=== PATIENT | female | born 1995 | race Caucasian/White ===

== ENCOUNTER 2017-03-31 02:09 | Emergency (ER) | payer MEDICAID, OTHER ==
[2017-03-31] MEDS ORDERED: Ketorolac 60 MG/2 ML SDV IM ONE (02:32)
[2017-03-31] MEDS ORDERED: Acetaminophen 500 MG Tab PO ONE (03:42)
--- NOTE | 2017-03-31 03:47 | EDM.PDOC ---
ED HPI GENERAL MEDICAL PROBLEM - General Chief Complaint: Chest Pain Stated Complaint: CHEST PAIN Time Seen by Provider: 03/31/17 03:15 Source of Information: Reports: Patient History Limitations: Reports: No Limitations - History of Present Illness INITIAL COMMENTS - FREE TEXT/NARRATIVE: 21 yo female presents with chest pain for at least a month, worse tonight. Has not been seen in the clinic for this. Denies injury to area. Pain worse with pressing on chest. 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 - Related Data Allergies Allergy/AdvReac Type Severity Reaction Status Date / Time No Known Allergies Allergy Verified 11/16/14 18:35 Home Meds: Home Meds Naproxen Sodium [Naproxen Sodium Ds] 550 mg PO TID PRN #20 tablet 03/31/17 [Rx] Past Medical History - Past Health History Medical/Surgical History: Denies Medical/Surgical History - Past Surgical History HEENT Surgical History: Reports: Tonsillectomy Social & Family History - Family History Family Medical History: Noncontributory - Tobacco Use Smoking Status *Q: Current Every Day Smoker Years of Tobacco use: 2 Packs/Tins Daily: 0.5 Second Hand Smoke Exposure: No - Caffeine Use Caffeine Use: Reports: Soda - Alcohol Use Days Per Week of Alcohol Use: 0 - Recreational Drug Use Recreational Drug Use: No ED ROS GENERAL - Review of Systems Review Of Systems: See Below Constitutional: Reports: No Symptoms HEENT: Reports: No Symptoms Respiratory: Reports: No Symptoms Cardiovascular: Reports: Chest Pain (sternal) GI/Abdominal: Reports: No Symptoms : Reports: No Symptoms Musculoskeletal: Reports: Other (sternal pain) Skin: Reports: No Symptoms Neurological: Reports: No Symptoms ED EXAM, GENERAL - Physical Exam Exam: See Below Exam Limited By: No Limitations General Appearance: Alert, WD/WN, No Apparent Distress Eye Exam: Bilateral Eye: Normal Inspection Ears: Normal External Exam, Normal Canal, Hearing Grossly Normal Ear Exam: Bilateral Ear: Auricle Normal, Canal Normal Nose: Normal Inspection, Normal Mucosa, No Blood Throat/Mouth: Normal Inspection, Normal Lips, Normal Oropharynx, Normal Voice, No Airway Compromise Head: Atraumatic, Normocephalic Neck: Normal Inspection, Supple Respiratory/Chest: No Respiratory Distress, Lungs Clear, Normal Breath Sounds, No Accessory Muscle Use Cardiovascular: Regular Rate, Rhythm, No Edema GI/Abdominal: Normal Bowel Sounds, Soft, Non-Tender, No Distention Back Exam: Normal Inspection Extremities: Normal Inspection, Normal Range of Motion, Non-Tender, No Pedal Edema Neurological: Alert, Oriented, CN II-XII Intact, Normal Cognition Psychiatric: Normal Affect, Normal Mood Skin Exam: Warm, Dry, Intact, Normal Color, No Rash Lymphatic: No Adenopathy Course - Vital Signs Text/Narrative:: Only partial relief with Toradol 60 mg IM Last Recorded V/S: Last Vital Signs Temp 36.9 C 03/31/17 02:10 Pulse 63 03/31/17 02:10 Resp 18 03/31/17 02:10 BP 132/72 03/31/17 02:10 Pulse Ox 100 03/31/17 02:10 - Orders/Labs/Meds Orders: Active Orders 24 hr Category Date Time Status Acetaminophen [Tylenol Extra Strength] Med 03/31/17 03:42 Once 1,000 mg PO ONETIME ONE Medication Orders Acetaminophen (Tylenol Extra Strength) 1,000 mg PO ONETIME ONE Stop: 03/31/17 03:43 Meds: Medications Generic Name Dose Route Start Last Admin Trade Name Freq PRN Reason Stop Dose Admin Acetaminophen 1,000 mg 03/31/17 03:42 Tylenol Extra Strength PO 03/31/17 03:43 ONETIME ONE Discontinued Medications Generic Name Dose Route Start Last Admin Trade Name Freq PRN Reason Stop Dose Admin Ketorolac Tromethamine 60 mg 03/31/17 02:32 03/31/17 02:39 Toradol IM 03/31/17 02:33 60 mg ONETIME ONE Administration Departure - Departure Time of Disposition: 03:50 Disposition: Home, Self-Care 01 Condition: Good Clinical Impression: Costochondritis Prescriptions: Naproxen Sodium [Naproxen Sodium Ds] 550 mg PO TID PRN #20 tablet PRN Reason: Pain Referrals: Manfred Lim MD [Primary Care Provider] - Forms: ED Department Discharge Additional Instructions: Take Naproxen as directed for pain relief. May add acetaminophen 1000 mg every 6 hrs if additional pain relief is needed. F/U with Dr. Lim for recheck. 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 - My Orders Last 24 Hours: My Active Orders 03/31/17 03:42 Acetaminophen [Tylenol Extra Strength] 1,000 mg PO ONETIME ONE - Assessment/Plan Last 24 Hours: My Active Orders 03/31/17 03:42 Acetaminophen [Tylenol Extra Strength] 1,000 mg PO ONETIME ONE
[2017-03-31 04:01] VITALS: BP 108/60
== END 2017-03-31 03:55 | disposition home or self-care (01) ==
LOC: FB.ED 02:09
DX: M94.0 Chondrocostal junction syndrome [Tietze] (principal); F17.210 Nicotine dependence, cigarettes, uncomplicated; Z98.890 Other specified postprocedural states
CPT/HCPCS: 96372; 99284; A9270; J1885

== ENCOUNTER 2017-11-29 20:51 | Emergency (ER) | payer OTHER ==
[2017-11-29] MEDS ORDERED: Bupivacaine 0.5% 50 ML MDV INFILT ONE (20:52)
--- NOTE | 2017-11-29 21:03 | EDM.PDOC ---
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 She denies loss of function of her right wrist and hand, there was mild bleed of the wound initially. No other acute medical issues. Pt denied . BP 125/56 pulse 97 RR 20 Pulse ox 99% on RA Temp 36.6 Onset Date: 11/29/17 Onset Time: 20:00 Duration: Minutes:, Constant Location: Reports: Upper Extremity, Right Quality: Reports: Ache, Burning, Dull Severity: Mild Improves with: Reports: Rest Worsens with: Reports: Movement Context: Reports: Trauma (cut right wrist by accident with a knife while cutting belts at work) Associated Symptoms: Reports: No Other Symptoms Right Arm Pain Score (Numeric/FACES): 3 - Related Data Allergies Allergy/AdvReac Type Severity Reaction Status Date / Time No Known Allergies Allergy Verified 11/29/17 21:14 Home Meds: Home Meds Cephalexin [Keflex] 500 mg PO Q6H #40 cap 11/29/17 [Rx] Past Medical History - Past Health History Medical/Surgical History: Denies Medical/Surgical History - Past Surgical History HEENT Surgical History: Reports: Tonsillectomy Social & Family History - Family History Family Medical History: Noncontributory - Tobacco Use Smoking Status *Q: Current Every Day Smoker Years of Tobacco use: 2 Packs/Tins Daily: 0.5 Second Hand Smoke Exposure: No - Caffeine Use Caffeine Use: Reports: Soda - Alcohol Use Days Per Week of Alcohol Use: 0 - Recreational Drug Use Recreational Drug Use: No Review of Systems - Review of Systems Review Of Systems: See Below Constitutional: Reports: No Symptoms Eyes: Reports: No Symptoms Ears: Reports: No Symptoms Nose: Reports: No Symptoms Mouth/Throat: Reports: No Symptoms Respiratory: Reports: No Symptoms Cardiovascular: Reports: No Symptoms GI/Abdominal: Reports: No Symptoms Genitourinary: Reports: No Symptoms Musculoskeletal: Reports: No Symptoms Skin: Reports: Wound (right wrist) Neurological: Reports: No Symptoms Psychiatric: Reports: No Symptoms ED EXAM, GENERAL - Physical Exam Exam: See Below Exam Limited By: No Limitations General Appearance: Alert, WD/WN, Mild Distress Eye Exam: Bilateral Eye: Normal Inspection Ears: Normal External Exam Ear Exam: Bilateral Ear: Auricle Normal Nose: Normal Inspection, Normal Mucosa Throat/Mouth: Normal Inspection, Normal Lips, Normal Teeth, Normal Gums, Normal Oropharynx, Normal Voice, No Airway Compromise Head: Atraumatic, Normocephalic Neck: Normal Inspection, Supple, Non-Tender, Full Range of Motion Respiratory/Chest: No Respiratory Distress, Lungs Clear, Normal Breath Sounds, No Accessory Muscle Use, Chest Non-Tender Cardiovascular: Normal Peripheral Pulses, Regular Rate, Rhythm, No Edema, No Gallop, No JVD, No Murmur, No Rub Peripheral Pulses: 1+: Radial (L) GI/Abdominal: Normal Bowel Sounds, Soft, Non-Tender, No Organomegaly, No Distention, No Abnormal Bruit, No Mass, Pelvis Stable (Female) Exam: Deferred Rectal (Female) Exam: Deferred Back Exam: Normal Inspection, Full Range of Motion Extremities: Normal Range of Motion, Non-Tender, No Pedal Edema, Normal Capillary Refill, Other (Laceration right wrist) Neurological: Alert, Oriented, CN II-XII Intact, Normal Cognition, Normal Gait, No Motor/Sensory Deficits Psychiatric: Normal Affect, Normal Mood Skin Exam: Warm, Dry, Normal Color, No Rash, Wound/Incision (LAC right ant wrist ) Lymphatic: No Adenopathy ED TRAUMA EXTREMITY PROCEDURES - Laceration/Wound Repair Right Arm Lac/Wound Length In cm: 4 Appearance: Superficial, Linear, Heavily Contaminated, Other Distal NVT: Neuro & Vascular Intact, No Tendon Injury, Other Anesthetic Type: Local Local Anesthesia - Bupivicaine (Marcaine): 0.5% Plain Local Anesthetic Volume: 5cc Skin Prep: Chlorhexidine (Hibiciens) Saline Irrigation (cc's): 6 Exploration/Debridement/Repair: Wound Explored, In a Bloodless Field, Explored to Base Closed With: Sutures Suture Size: 4-0 # of Sutures: 6 Suture Type: Interrupted, Other (ethilon) Sterile Dressing Applied: Nurse Tetanus Status Addressed: Yes (given today) Complications: No Course - Vital Signs Text/Narrative:: 22 y.o.w.f came to the ed after 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 She denies loss of function of her right wrist and hand, there was mild bleed of the wound initially. No other acute medical issues. Pt denied . no FB in wound. BP 125/56 pulse 97 RR 20 Pulse ox 99% on RA Temp 36.6 PE: WNWD W F came to the ED after she cut in her right wrist by accident at work. No FB in wound Impression: Laceration right forearm, workmans comp tx: Wound repair, Neosporine ointment, Keflrx Reexam: Improved Plan: D/C with instructions Last Recorded V/S: Last Vital Signs Temp 36.4 C 11/29/17 20:52 Pulse 68 11/29/17 21:45 Resp 16 11/29/17 21:45 BP 123/56 L 11/29/17 21:45 Pulse Ox 99 11/29/17 21:45 - Orders/Labs/Meds Orders: Active Orders 24 hr Category Date Time Status Vaccines to be Administered [RC] PER UNIT ROUTINE Care 11/29/17 21:05 Active Meds: Medications Discontinued Medications Generic Name Dose Route Start Last Admin Trade Name Demetriq PRN Reason Stop Dose Admin Cephalexin 500 mg 11/29/17 21:27 11/29/17 22:09 Keflex PO 11/29/17 21:28 500 mg ONETIME ONE Administration Diphtheria/Tetanus/Acell Pertussis 0.5 ml 11/29/17 21:05 11/29/17 21:34 Adacel IM 11/29/17 21:06 0.5 ml .ONCE ONE Administration Departure - Departure Time of Disposition: 21:31 Disposition: Home, Self-Care 01 Condition: Good Clinical Impression: Laceration - Discharge Information Prescriptions: Cephalexin [Keflex] 500 mg PO Q6H #40 cap Instructions: Laceration Care, Adult Referrals: Manfred Lim MD [Primary Care Provider] - Forms: ED Department Discharge Additional Instructions: Please take keflex as recommended, please apply neosporine ointment to wound twice daily, for 5 days, wound check in 2 days, suture removal in 7-10 days.please come back if your symptoms get worse acutely. - My Orders Last 24 Hours: My Active Orders 11/29/17 21:05 Vaccines to be Administered [RC] PER UNIT ROUTINE - Assessment/Plan Last 24 Hours: My Active Orders 11/29/17 21:05 Vaccines to be Administered [RC] PER UNIT ROUTINE
[2017-11-29] MEDS ORDERED: Diphtheria,Pertussis(Acell),Tetanus Vaccine 0.5 ML SDV IM ONE (21:05)
[2017-11-29] MEDS ORDERED: Cephalexin 500 MG Cap PO ONE (21:27)
[2017-11-29 22:33] VITALS: BP 123/56
== END 2017-11-29 22:17 | disposition home or self-care (01) ==
LOC: FB.ED 20:51
DX: S51.811A Laceration without foreign body of right forearm, initial encounter (principal); F17.210 Nicotine dependence, cigarettes, uncomplicated; Z23 Encounter for immunization; W26.8XXA Contact with other sharp object(s), not elsewhere classified, initial encounter; Y99.0 Civilian activity done for income or pay
CPT/HCPCS: 12002; 90471; 90715; 99000; 99282; A9270